=== PATIENT | female | born 1960 | race Caucasian/White ===

== ENCOUNTER 2017-12-07 09:19 | Emergency (ER) | payer OTHER ==
[~2017-12-07] VITALS: Ht 162.6 cm; Wt 88.5 kg
[2017-12-07] MEDS ORDERED: ZESTORETIC 20-1 EAC3 PO (09:35)
[2017-12-07] MEDS ORDERED: ASPIR 8181 MG PO (09:35)
[2017-12-07] MEDS ORDERED: ATORVASTATIN CA40 MG PO (09:35)
[2017-12-07] MEDS ORDERED: B COMPLEX1 EACH PO (09:36)
[2017-12-07] MEDS ORDERED: TRAMADOL 50 MG50 MG PO (10:53)
[2017-12-07] MEDS ORDERED: MOBIC7.5 MG PO (10:53)
[2017-12-07 11:23] VITALS: BP 153/94
== END 2017-12-07 11:24 | disposition home or self-care (01) ==
LOC: ER 09:19
DX: S83.8X1A Sprain of other specified parts of right knee, initial encounter (principal); I10 Essential (primary) hypertension; E78.00 Pure hypercholesterolemia, unspecified; F17.210 Nicotine dependence, cigarettes, uncomplicated; Z88.1 Allergy status to other antibiotic agents; Z88.8 Allergy status to other drugs, medicaments and biological substances; W01.0XXA Fall on same level from slipping, tripping and stumbling without subsequent striking against object, initial encounter; Y93.89 Activity, other specified; Y92.89 Other specified places as the place of occurrence of the external cause; Y99.0 Civilian activity done for income or pay

== ENCOUNTER 2019-12-02 14:53 | Emergency (ER) | payer OTHER ==
[~2019-12-02] VITALS: Ht 162.6 cm; Wt 90.7 kg
[~2019-12-02 14:53] MED LIST: ASPIR 8181 MG PO; ATORVASTATIN CA40 MG PO; B COMPLEX1 EACH PO; MOBIC7.5 MG PO; TRAMADOL 50 MG50 MG PO; ZESTORETIC 20-1 EAC3 PO
[2019-12-02 15:29] LABS: ANION GAP 8 mmol/L (7-16); BUN 17 mg/dL (7-18); CALCIUM 9.2 mg/dL (8.5-10.1); CHLORIDE 101 mmol/L (98-107); CO2 27 mmol/L (21-32); GLUCOSE 108 mg/dL (74-106); SODIUM 136 mmol/L (136-145)
[2019-12-02 15:32] LABS: ABSOLUTE NEUTROPHILS 4.5 thou/uL (1.4-8.2); BASOPHILS 0.8 % (0.0-2.0); EOSINOPHILS 1.1 % (0.0-3.0); HEMOGLOBIN 14.9 gm/dL (12.0-15.0); LYMPHOCYTES 30.6 % (24.0-44.0); MCH 32.6 pg (26.0-34.0); MCHC 33.9 g/dL (28.0-37.0); MCV 96.2 fL (80.0-100.0); MONOCYTES 6.2 % (1.0-8.0); PLATELET COUNT 239 thou/uL (150-400); POLYS 61.3 % (36.0-66.0); RBC 4.58 mil/uL (4.20-5.00); RDW 14.4 % (10.5-14.5); WBC 7.3 thou/uL (4.0-11.0)
[2019-12-02 15:34] LABS: ALBUMIN 3.7 g/dL (3.4-5.0); SGOT 30 U/L (15-37); SGPT 29 U/L (30-65); TOTAL BILIRUBIN 0.4 mg/dL (0.2-1.0); TOTAL PROTEIN 7.6 g/dL (6.4-8.2); TROPONIN-I <0.06 ng/mL (<0.06)
[2019-12-02] MEDS ORDERED: OMEPRAZOLE 20 M20 M1 PO (16:12)
--- NOTE | 2019-12-02 16:15 | EKG ---
[facility] [place] [address] ELECTROCARDIOGRAM REPORT Name: NIKI TYLER Room #: [facility]..#: [id number] Admission: Attend Phys: Discharge: Date of : 58 Report #: [id number] THIS REPORT FOR: cc: DAVIN - Shireen family physician/PCP DAVIN - Shireen family physician/PCP Dat Amador MD [facility] ~ THIS REPORT FOR: //name// [facility] ED Test Date: 2019-12-02 Test Time: 14:53:45 Pat Name: NIKI TYLER Department: Room: Gender: F Tailercpa: ROSAS : 1960 Requested By: Allyn Cruz Order Number: [id number] MD: Dat Amador Measurements Intervals [place] Rate: 97 P: 41 VA: 194 QRS: -19 QRSD: 95 T: 41 QT: 384 QTc: 488 Interpretive Statements Sinus rhythm Abnormal R-wave progression, late transition Inferior infarct, age indeterminate Borderline prolonged QT interval Baseline wander in lead(s) V5 No previous ECG available for comparison Electronically Signed On 12-02-2019 16:14:45 CDT by Dat Amador [email or web address] <ELECTRONICALLY SIGNED> By: Dat Amador MD, [facility] 12/02/19 1614 1453 1453 Dat Amador MD, [facility] /EPI
[2019-12-02 17:59] VITALS: BP 168/90
== END 2019-12-02 18:00 | disposition home or self-care (01) ==
LOC: ER 14:53
PROVIDERS: Emergency Medicine
DX: R07.89 Other chest pain (principal); I10 Essential (primary) hypertension; E78.00 Pure hypercholesterolemia, unspecified; F17.210 Nicotine dependence, cigarettes, uncomplicated; Z88.1 Allergy status to other antibiotic agents; Z88.8 Allergy status to other drugs, medicaments and biological substances; Z79.82 Long term (current) use of aspirin; Z79.899 Other long term (current) drug therapy